=== PATIENT | male | born 1960 | race Hispanic/Latino ===

== ENCOUNTER 2017-03-12 21:14 | Emergency (ER) | payer BC ==
[2017-03-12 21:43] LABS: #Eosinphils 0.3 thou/uL (0.0-0.7); #Lymphocytes 3.4 thou/uL (1.20-3.40); #Monocytes 1.3 thou/uL (0.11-0.59); #Neutrophils 5.7 thou/uL (1.40-6.50); %Basophils 0.4 % (0.0-1.0); %Eosinophils 3.2 % (0.0-10.0); %Lymphocytes 31.5 % (21.0-51.0); %Monocytes 11.7 % (0.0-10.0); Hematocrit 40.9 % (42.0-52.0); Mean Platelet Volume 6.8 fL (7.4-10.4); Red Blood Cell (RBC) Count 4.13 mill/uL (4.70-6.10); White Blood Cell (WBC) Count 10.8 thou/uL (4.8-10.8)
--- NOTE | 2017-03-12 21:50 | RAD ---
PORTABLE CHEST: Date: 03-12-17 Provided Clinical History: Chest pain. FINDINGS: Comparison 12-17-12. Cardiac and mediastinal silhouette is within normal limits. Lungs appear clear. N o pleural fluid or pneumothorax apparent. Chronic deformity of the left distal clavicle appears simil ar to the prior study. IMPRESSION: No evidence for acute cardiopulmonary process. POS: [facility]
[2017-03-12] MEDS ORDERED: predniSONE 20 MG TAB ONE (21:53)
[2017-03-12 22:04] LABS: ALT (SGPT) 22 U/L (8-55); AST (SGOT) 31 U/L (5-34); Alkaline Phosphatase 85 U/L (40-150); Anion Gap 14 mmol/L (10-20); BUN (Urea Nitrogen) 17 mg/dL (8.4-25.7); Bilirubin, Total 0.2 mg/dL (0.2-1.2); CK (CPK) 117 U/L (30-200); Calc. Creatinine Clearance 0 mL/min (70-130); Calcium 8.6 mg/dL (7.8-10.44); Carbon Dioxide 20 mmol/L (22-29); Chloride 102 mmol/L (98-107); Estimated GFR-MDRD Greater than 90; Globulin 3.3 g/dL (2.4-3.5); Lipase 23 U/L (8-78)
[2017-03-12 22:08] LABS: Troponin I Less than 0.010 ng/mL (< 0.028)
--- NOTE | 2017-04-07 20:53 | EKG ---
Test Reason : Blood Pressure : / mmHG Vent. Rate : 122 BPM Atrial Rate : 122 BPM P-R Int : 126 ms QRS Dur : 084 ms QT Int : 316 ms P-R-T Axes : 051 -50 047 degrees QTc Int : 450 ms Sinus tachycardia Left anterior fascicular block Abnormal ECG Confirmed by JUMA FRYE, BLANCHE ([id number]), makeup editor ADELINA KHALIL ([id number]) on 04/07/2017 8:52:28 PM Referred By: Confirmed By:BLANCHE DENNISON MD
== END 2017-03-12 23:39 | disposition home or self-care (01) ==
LOC: ERS 21:14
DX: J40 Bronchitis, not specified as acute or chronic (principal); I10 Essential (primary) hypertension; F31.9 Bipolar disorder, unspecified; F20.9 Schizophrenia, unspecified; Z71.6 Tobacco abuse counseling; F17.210 Nicotine dependence, cigarettes, uncomplicated; Z79.899 Other long term (current) drug therapy
CPT/HCPCS: 71010; 80053; 82553; 83690; 84484; 85025; 93005; 94640; 99406; J7506; J7620

== ENCOUNTER 2024-02-15 21:00 | Inpatient (IN) | payer SELFPAY, OTHER ==
[2024-02-15] MEDS ORDERED: Morphine 2 MG/ML VIAL ONE (22:23)
[2024-02-15] MEDS ORDERED: Ondansetron PF 4 MG/2 ML Vial ONE (22:23)
[2024-02-15] MEDS ORDERED: Morphine 4 MG/ML VIAL ONE (22:32)
[2024-02-16] MEDS ORDERED: Glucagon 1 MG/ML KIT IM PRN (00:10)
[2024-02-16] MEDS ORDERED: Morphine 4 MG/ML VIAL SLOW IVP PRN (00:10)
[2024-02-16] MEDS ORDERED: Dextrose 50% Abboject 50 ML SYRINGE SLOW IVP PRN (00:10)
[2024-02-16] MEDS ORDERED: Ondansetron ODT 4 MG TAB PO PRN (00:10)
[2024-02-16] MEDS ORDERED: hydrALAZINE 20 MG/ML VIAL SLOW IVP PRN (00:10)
[2024-02-16] MEDS ORDERED: Dextrose 5% in Water 1,000 ML IV PRN (00:10)
[2024-02-16 01:38] VITALS: BMI 27.7
[2024-02-16] MEDS: Acetaminophen 325 MG TAB PO PRN (02:15)
[2024-02-16] MEDS: Cyclobenzaprine 10 MG TAB PO PRN (02:16)
[2024-02-16] MEDS: traMADol HCl 50 MG TAB PO PRN ×2 (02:16→17:36)
[2024-02-16 04:57] LABS: #Basophils 0.06 10x3/uL (0.0-0.2); %Basophils 0.7 % (0.0-1.0); %Eosinophils 1.8 % (0.0-10.0); %Lymphocytes 21.3 % (21.0-51.0); %Monocytes 10.1 % (0.0-10.0); %Neutrophils 65.6 % (42.0-75.0); Hematocrit 34.8 % (42.0-52.0); Hemoglobin 12.1 g/dL (14.0-18.0); Mean Corpuscular HGB CONC 34.8 g/dL (32.0-36.0); Mean Corpuscular Hemoglobin 32.1 pg (27.0-31.0); Mean Corpuscular Volume 92.3 fL (78.0-98.0); Mean Platelet Volume 9.3 fL (7.4-10.4); Platelet Count 224 10x3/uL (130-400); RBC Distribution Width 13.5 % (11.5-14.5); Red Blood Cell (RBC) Count 3.77 mill/uL (4.70-6.10)
[2024-02-16 05:11] LABS: Anion Gap 14 mmol/L (10-20); BUN (Urea Nitrogen) 10 mg/dL (8.4-25.7); Calc. Creatinine Clearance 110 mL/min (70-130); Calcium 8.1 mg/dL (7.8-10.44); Carbon Dioxide 22 mmol/L (23-31); Chloride 101 mmol/L (98-107); Estimated GFR 101; Glucose 108 mg/dL (80-115); Potassium 3.8 mmol/L (3.5-5.1); Sodium 133 mmol/L (136-145)
[2024-02-16] MEDS ORDERED: Famotidine/PF 20 mg/2ml Vial ONE (09:37)
[2024-02-16] MEDS ORDERED: fentaNYL PF 100 MCG/2 ML SYRINGE ONE (09:46)
[2024-02-16] MEDS ORDERED: Lidocaine 2% PF 5 ML VIAL ONE (09:47)
[2024-02-16] MEDS ORDERED: PROPOFOL 20 ML ONE (09:47)
[2024-02-16] MEDS ORDERED: CEFAZOLIN 1 GM VIAL ONE (10:05)
[2024-02-16] MEDS ORDERED: PHENYLEPHRINE-NS 100 MCG/ML 10 ML SYRINGE ONE (10:17)
[2024-02-16] MEDS ORDERED: Ondansetron PF 4 MG/2 ML Vial ONE (10:22)
[2024-02-16] MEDS ORDERED: Ketorolac Tromethamine 30 MG (1 mL) VIAL ONE (10:22)
[2024-02-16] MEDS ORDERED: fentaNYL 50 mcg/mL 1 mL Vial ONE ×4 (10:48→12:46)
[2024-02-16] MEDS ORDERED: Promethazine HCl 25 MG/ML VIAL IM PRN (11:33)
[2024-02-16] MEDS ORDERED: Ondansetron HCl/PF 4 MG/2 ML Vial IVP PRN (11:33)
[2024-02-16] MEDS ORDERED: Meperidine HCl/PF 25 MG (1 mL) VIAL ONE (12:12)
[2024-02-16] MEDS: traMADol HCl 50 MG TAB PO SCH (13:14)
[2024-02-16] MEDS: Acetaminophen 325 MG TAB PO SCH (13:14)
[2024-02-16] MEDS: CEFAZOLIN 1 GM in Sodium Chloride 0.9% 100 ML IVPB SCH (18:32)
[2024-02-16] MEDS: Morphine 2 MG/ML VIAL SLOW IVP PRN (19:55)
[2024-02-17 05:13] LABS: #Basophils 0.06 10x3/uL (0.0-0.2); %Basophils 0.7 % (0.0-1.0); %Eosinophils 4.3 % (0.0-10.0); %Lymphocytes 21.9 % (21.0-51.0); %Neutrophils 58.9 % (42.0-75.0); Hematocrit 31.6 % (42.0-52.0); Hemoglobin 10.6 g/dL (14.0-18.0); Mean Corpuscular HGB CONC 33.5 g/dL (32.0-36.0); Mean Corpuscular Hemoglobin 32.4 pg (27.0-31.0); Mean Corpuscular Volume 96.6 fL (78.0-98.0); Mean Platelet Volume 9.7 fL (7.4-10.4); Platelet Count 189 10x3/uL (130-400); RBC Distribution Width 14.1 % (11.5-14.5); Red Blood Cell (RBC) Count 3.27 mill/uL (4.70-6.10)
[2024-02-17 05:25] LABS: Anion Gap 9 mmol/L (10-20); BUN (Urea Nitrogen) 17 mg/dL (8.4-25.7); Calc. Creatinine Clearance 96 mL/min (70-130); Carbon Dioxide 26 mmol/L (23-31); Chloride 102 mmol/L (98-107); Estimated GFR 97; Glucose 102 mg/dL (80-115); Potassium 3.9 mmol/L (3.5-5.1); Sodium 133 mmol/L (136-145)
[2024-02-17] MEDS: Methocarbamol 500 MG TAB PO SCH (08:30)
[2024-02-17] MEDS: HYDROcodone/Acetaminophen 5/325 mg Tablet PO PRN (08:30)
[2024-02-17] MEDS: Ketorolac Tromethamine 30 MG (1 mL) VIAL IVP SCH ×2 (08:30→14:16)
[2024-02-17] MEDS: Enoxaparin 40 MG (0.4 mL) SYRINGE SC SCH (20:01)
[2024-02-18] MEDS: Senokot S 8.6-50 MG TAB PO SCH (09:18)
[2024-02-18] MEDS: Polyethylene Glycol 3350 17 GM Packet PO SCH (09:20)
[2024-02-18 11:10] VITALS: TEMP 98.5
[2024-02-18 18:22] VITALS: BP 146/86
== END 2024-02-18 18:17 | disposition home or self-care (01) | DRG 494 ==
LOC: ERS 21:00 → SURG B 02-16 00:32
PROVIDERS: ADMIT Surgery; ATTEND Surgery
PROC: 0QSG06Z Reposition Right Tibia with Intramedullary Internal Fixation Device, Open Approach (ICD-10-PCS; principal; 2024-02-16)
DX: S82.391A Other fracture of lower end of right tibia, initial encounter for closed fracture (principal); W18.30XA Fall on same level, unspecified, initial encounter; I10 Essential (primary) hypertension; Z98.890 Other specified postprocedural states; Z88.8 Allergy status to other drugs, medicaments and biological substances; N40.0 Benign prostatic hyperplasia without lower urinary tract symptoms; F17.210 Nicotine dependence, cigarettes, uncomplicated; Z79.899 Other long term (current) drug therapy; K21.9 Gastro-esophageal reflux disease without esophagitis; F31.9 Bipolar disorder, unspecified
CPT/HCPCS: 36415; 80048; 85025; 96374; 96375; C1713; G0390; J0690; J1650; J1885; J2175; J2272; J2405; J2704; J3010; J3490